=== PATIENT | female | born 1955 | race Caucasian/White ===

== ENCOUNTER 2019-09-17 08:44 | Emergency (ER) | payer BC ==
[~2019-09-17] VITALS: Ht 165.1 cm; Wt 58.5 kg
[2019-09-17] MEDS ORDERED: MONTELUKAST SODI4 M1 PO (09:07)
[2019-09-17] MEDS ORDERED: ADVAIR HFA 115/12 GM IH (09:07)
== END 2019-09-17 13:50 | disposition home or self-care (01) ==
LOC: ER 08:44
DX: K52.1 Toxic gastroenteritis and colitis (principal)